=== PATIENT | female | born 1970 | race Caucasian/White ===

== ENCOUNTER → 2016-08-27 | Outpatient (CLI) | payer OTHER ==
[~2016-08-27] MED LIST: CLARITIN10 M3 PO; LORTAB 5/500 TA1 TA1 PO; PEN-VEE K PO
--- NOTE | ~2016-08-27 | US128 ---
[id number] [facility] [address] [place], [place] [address] [id number] O MR#: [id number] [facility] #: [id number] NAME: SANJIV MTZ : 1970 SEX: F STUDY DATE/TIME: 08/27/2016 7:55 UNIT: [facility] ROOM: STUDY DESCRIPTION: Thyroid Attending Physician: Abhijit Lee M.D. Referring Physician: Abhijit Lee M.D. Ordering Physician: Abhijit Lee M.D. Primary Care Physician: Abhijit Lee M.D. MEDICAL IMAGING REPORT This report is preliminary unless electronic signature is present EXAM Ultrasound of the thyroid gland INDICATION Thyroid nodules. This is a followup examination. Nodules were originally seen on an exam from the 01/27/2016. 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 TECHNIQUE Hdz-scale and color Doppler sonographic images were obtained through the thyroid gland. FINDINGS Right lobe of the thyroid gland measures 4.5 x 2.6 x 2.2 cm. There are 2 nodules seen within the right lobe of the thyroid gland. The larger measures 1.4 x 0.8 x 1.1 cm. I do not think this is really significantly changed when compared to the exam from January 27, 2016. The second nodule measures 1.0 x 0.8 x 1.0 cm and is perhaps marginally increased in size when compared to the prior exam from January 27, 2016. I am uncertain if this reflects a true increase in the size of the nodule or if it simply reflects differences in measurement technique. I do not see any new nodules on today's examination. IMPRESSION Solid nodule identified within the right lobe of the thyroid gland measuring up to 1.4 x 0.8 x 1.1 cm is not significantly changed in size when compared to January 27, 2016. There is a mixed solid and cystic nodule which is located laterally. It measures 1.0 x 0.8 x 1.0 cm, which may be marginally larger than on the prior exam. I am uncertain if this is a true increase in size or if it reflects differences in measurement technique. Repeat sonographic follow up in 6 months is suggested. No new nodules are identified. 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 Dictated by... Karen Allen M.D. THIS IS AN ELECTRONICALLY VERIFIED REPORT Karen Allen M.D. at 08/27/2016 3:29 PM AFF/aa TD: 08/27/2016 14:51 JOB #: [id number] MEDICAL IMAGING REPORT Page 1 of 1 COPY
== END | disposition home or self-care (01) ==
LOC: CWCC 07:44
DX: E04.1 Nontoxic single thyroid nodule (principal); Z98.890 Other specified postprocedural states
CPT/HCPCS: 76536